=== PATIENT | male | born 1995 | race African-American/Black ===

== ENCOUNTER 2018-05-06 21:36 | Emergency (ER) | payer SELFPAY ==
[2018-05-06 21:48] VITALS: TEMP 97.2; BMI 17.4
--- NOTE | 2018-05-06 21:48 | PDOC ---
Rapid Medical Evaluation Chief Complaint: Pain Medical Evaluation: 05/06/18 21:45 I have performed a brief in-person evaluation of this patient. The patient presents with a chief complaint of:dizziness/ abd pain with gas . no fevers / no vomiting or diarhea. Pertinent physical exam findings: lungs clear , abd soft with no rebound I have ordered the following: nothing The patient will proceed to the ED for further evaluation.
--- NOTE | 2018-05-06 23:28 | PDOC ---
History of Present Illness - General Chief Complaint: Pain Stated Complaint: Lightheaded Time Seen by Provider: 05/06/18 23:09 History Source: Patient - History of Present Illness Initial Comments: 05/06/18 23:50 22 year old male c/o epigastric pain since 1 pm after eating baked Ziti. oatient denies NVD, urinary symptoms. denies pain at this time reports feeling lightheaded which now has resolved Past History - Past Medical History Allergies/Adverse Reactions: Allergies Allergy/AdvReac Type Severity Reaction Status Date / Time No Known Allergies Allergy Verified 05/06/18 21:48 Home Medications: Ambulatory Orders Mag Hydrox/Al Hydrox/Simeth [Mylanta Suspension -] 30 ml PO Q6H PRN #1 bottle COPD: No - Suicide/Smoking/Psychosocial Hx Smoking History: Current every day smoker Have you smoked in the past 12 months: Yes Number of Cigarettes Smoked Daily: 10 Information on smoking cessation initiated: No Hx Alcohol Use: No Drug/Substance Use Hx: Yes (MARIJUANA) Review of Systems - Review of Systems Able to Perform ROS?: Yes Is the patient limited Vietnamese proficient: No *Physical Exam - Vital Signs Last Vital Signs Temp Pulse Resp BP Pulse Ox 97.2 F L 70 16 144/54 L 100 05/06/18 21:46 05/06/18 21:46 05/06/18 21:46 05/06/18 21:46 05/06/18 21:46 - Physical Exam General Appearance: Yes: Appropriately Dressed HEENT: positive: Normal ENT Inspection Respiratory/Chest: positive: Lungs Clear, Normal Breath Sounds Cardiovascular: positive: Regular Rhythm, Regular Rate Gastrointestinal/Abdominal: positive: Normal Bowel Sounds, Soft. negative: Tender Musculoskeletal: positive: Normal Inspection Extremity: positive: Normal Capillary Refill, Normal Inspection, Normal Range of Motion Integumentary: positive: Normal Color, Dry, Warm Neurologic: positive: Fully Oriented, Alert, Normal Mood/Affect Moderate Sedation - Procedure Monitoring Vital Signs: Procedure Monitoring Vital Signs Temperature 97.2 F L 05/06/18 21:46 Pulse Rate 70 05/06/18 21:46 Respiratory Rate 16 05/06/18 21:46 Blood Pressure 144/54 L 05/06/18 21:46 O2 Sat by Pulse Oximetry (%) 100 05/06/18 21:46 Progress Note - Progress Note Progress Note: A: gastritis P: maalox *DC/Admit/Observation/Transfer Diagnosis at time of Disposition: Gastritis Qualifiers: Gastritis type: unspecified gastritis Chronicity: unspecified Gastritis bleeding: presence of bleeding unspecified Qualified Code(s): K29.70 - Gastritis , unspecified, without bleeding - Discharge Dispostion Disposition: HOME - Prescriptions Prescriptions: Mag Hydrox/Al Hydrox/Simeth [Mylanta Suspension -] 30 ml PO Q6H PRN #1 bottle PRN Reason: Dyspepsia - Referrals - Patient Instructions Printed Discharge Instructions: [place] Diet Additional Instructions: encourage plenty of fluids follow up with your doctor as soon as possible. - Post Discharge Activity Forms/Work/School Notes: Back to Work
[2018-05-06] MEDS ORDERED: MAG HYDROX/AL HYDROX/SIMETH 30 ML UNIT-DOSE CUP PO ONE (23:30)
[2018-05-06] MEDS ORDERED: MAG HYDROX/AL HYDROX/SIMETH 30 ML UNIT-DOSE CUP ONE (23:42)
[2018-05-06 23:58] VITALS: BP 109/49; PULSE 67
== END 2018-05-07 00:40 | disposition home or self-care (01) ==
LOC: JER 21:36
CPT/HCPCS: 99281-25